=== PATIENT | female | born 1935 | race Caucasian/White ===

== ENCOUNTER 2016-06-03 16:00 | Emergency (ER) | payer MEDICARE, OTHER ==
--- NOTE | 2016-06-04 23:16 | ER ---
ADMIT: 06/03/2016 RM/LOC: ER [facility] MR#: [id number] [address] [id number] NUHA BERGERON [address] [place] [address] Emergency Room Report SEX: F AGE: 80 : 1935 DATE: 06/03/2016 CHIEF COMPLAINT: Syncopal episode. HISTORY OF PRESENT ILLNESS: The patient is an 80-year-old female, who is otherwise very healthy for her age. Does not take any medications for chronic illnesses, who comes in by EMS for a syncopal episode. She states she felt a little overly tired today, but really had no other symptoms whatsoever, has not been sick recently. She was at a baseball game today, had been standing quite a bit, but then was sitting down, and felt like she got lightheaded, and it sounds like she had a very brief episode where she might have lost consciousness for less than 5 seconds. When she came too, she just felt tired. She had no seizure activity. It was witnessed by bystanders and her daughter. She denies any pain at any time during this episode and other than feeling a little tired now, has no specific complaints. REVIEW OF SYSTEMS: Ten-point review of systems is done and otherwise negative except as in HPI. PAST MEDICAL HISTORY: Negative for any chronic medical problems. She states she has been told that she occasionally has a skipped beat, but that is all she has been told and no other arrhythmias. She has had a left rotator cuff repair. MEDICATIONS: None. ALLERGIES: NONE. SOCIAL HISTORY: Denies smoking, drug, or alcohol use. PHYSICAL EXAMINATION: VITAL SIGNS: Blood pressure is 144/70, pulse 84, respirations 18, temperature 97, sats 99% on room air. HEENT: Head is atraumatic. Pupils are equal, round, and reactive to light. HEART: Regular rate and rhythm. LUNGS: Clear to auscultation. ABDOMEN: Soft, nontender. SKIN: Warm and dry. She has good pulses in all 4 extremities. Sensation and motor are grossly intact. She has no drift in any extremity. Orthostatics showed that her blood pressure dropped slightly. This is prior to getting 500 mL fluid bolus in the ER. She was not symptomatic when she stood up. LABORATORY: Shows normal CBC other than a white count of 10.2, her ADMIT: 06/03/2016 RM/LOC: ER [facility] MR#: [id number] [address] [address] NUHA BERGERON [address] [place] [address] Emergency Room Report SEX: F AGE: 80 : 1935 electrolytes were unremarkable, and her cardiac enzymes were normal. Urinalysis showed 1+ protein and 2+ ketones, but no signs of infection. EKG showed sinus rhythm, rate of 80. No signs of ischemia and a CT head was negative. HOSPITAL COURSE: The patient was asymptomatic while in the ER. I did tell her that if she was not comfortable going home or she had any other concerns, we could bring her in observation, but she states she is feeling fine and would like to go home. I notified Dr. Waters, who is on for the patient's primary care physician, Dr. Foreman to let her know the patient was here and workup was done. She will be discharged home with a 48-hour Holter to call the office on Sunday and to arrange for followup with Dr. Foreman. Chato Guerra MD/ nathan JOB #: [id number] CC: Geoff Ely MD, Attending Physician Zeynep Foreman MD, Family Physician
== END 2016-06-03 18:30 | disposition home or self-care (01) ==
LOC: ER 16:00
DX: R55 Syncope and collapse (principal)

== ENCOUNTER → 2016-06-13 | Outpatient (CLI) | payer MEDICARE, OTHER | END | disposition home or self-care (01) | DX: R55 Syncope and collapse (principal); R10.9 Unspecified abdominal pain; R14.0 Abdominal distension (gaseous) ==

== ENCOUNTER → 2016-07-31 | Outpatient (CLI) | payer MEDICARE, OTHER | END | disposition home or self-care (01) | LOC: RAD.S 11:09 | DX: Z12.31 Encounter for screening mammogram for malignant neoplasm of breast (principal) ==